=== PATIENT | male | born 2000 | race Caucasian/White ===

== ENCOUNTER 2020-07-26 09:03 | Emergency (ER) | payer OTHER, SELFPAY ==
--- NOTE | ~2020-07-26 | XR_ITS ---
XR hand RT min 3V DATE: 07/26/2020 09:55 INDICATION: Fell into a linear. Right hand injury. TECHNIQUE: 3 portable views. The hand is bandaged and there is suboptimal non-standard positioning as a result. COMPARISON: None FINDINGS: No radiopaque soft tissue foreign body or subcutaneous emphysema is evident. No fracture or dislocation is detected. IMPRESSION: No definite abnormality Reviewed, dictated and finalized at location A. IMPRESSION: No definite abnormality
[2020-07-26 09:16] VITALS: BP 147/91; PULSE 67; RESP 20; TEMP 36.7; O2SAT 96
--- NOTE | 2020-07-26 10:45 | ED.WOUNDLAC ---
HPI - Wound/Laceration General Chief Complaint: Wound/Laceration Stated Complaint: cut R hand Time Seen by Provider: 07/26/20 09:17 Source: patient and family Mode of arrival: ambulatory Limitations: no limitations History of Present Illness HPI narrative: 20-year-old with no major medical problems was brought in by family with complaints of laceration to his right hand sustained prior to coming to the ER. Patient states that he accidentally tripped and fell on marrow sustained a laceration. He denies any other injuries. Onset (ago): minute(s) (30) Extremity Location: Right: hand Place: home Patient tetanus UTD: Yes Context: accidental Associated symptoms: none and unable to move injured part Related Data Allergies Allergy/AdvReac Type Severity Reaction Status Date / Time No Known Allergies Allergy Verified 07/26/20 09:04 Review of Systems Review of Systems: All systems reviewed & are unremarkable except as noted in HPI and below Constitutional: Constitutional: Reports no additional constitutional complaints Eyes: Eyes: Reports no additional eye complaints ENT: Reports system reviewed and no additional complaints, except as documented Cardiovascular: Cardiovascular: Reports no additional cardiovascular complaints Respiratory: Respiratory: Reports no additional respiratory complaints Musculoskeletal: Musculoskeletal: Reports as per HPI Integumentary/Breasts: Skin/Breast: Reports as per HPI Neurologic: Reports system reviewed and no additional complaints, except as documented PMFSH Social History Social History Gender identity (if verbalized by the patient): Male Exam Narrative: Exam Narrative: GENERAL: Well-appearing, well-nourished, and in no acute distress. HEAD: Normocephalic, atraumatic. EYES: PERRLA and EOMI. ENT: Nares clear, no rhinorrhea or epistaxis. Mucous membranes moist. NECK: Supple. CHEST: Clear to auscultation. No respiratory distress. HEART: Regular rate and rhythm. No murmur heard. Normal peripheral pulses. EXTREMITIES: Right hand Has laceration on the dorsum at the 3 metacarpophalangeal joint , unable to extend the finger , decrease sensation distally SKIN: Warm, dry, no rash. NEURO: No focal deficits. Alert and oriented x3. PSYCH: Normal mood and affect. Course Course Emergency Course: Inform patient about x-ray findings. I closed the wound with 4-0 nylon. However he does have possible tendon and back nerve injury I discussed with Dr. Alvarado at [facility] recommended Augmentin and patient can be followed up in their office tomorrow. Patient does feel comfortable going home Vital Signs Vital signs: Vital Signs Temperature 36.7 C 07/26/20 09:16 Pulse Rate 67 07/26/20 09:16 Respiratory Rate 20 07/26/20 09:16 Blood Pressure 147/91 H 07/26/20 09:16 Pulse Oximetry 96 07/26/20 09:16 Temperature 36.7 C 07/26/20 09:16 Pulse Rate 67 07/26/20 09:16 Respiratory Rate 20 07/26/20 09:16 Blood Pressure 147/91 H 07/26/20 09:16 Pulse Oximetry 96 07/26/20 09:16 Procedures Laceration Laceration 1: Date: 07/26/20 Site: hand Side (If applicable): right Description: flap Depth: simple, single layer Local Anesthetic: lidocaine 2% and with epi Amount of anesthesia used (mL): 10 Pre-repair: wound explored and irrigated ====== Skin Level ====== Skin layer closed with: nylon Size (cm): 4-0 Number of sutures: 8 Technique: simple, interrupted ====== Subcutaneous Layer ====== ====== Muscle Layer ====== ====== Tendon Layer ====== MDM - Wound/Laceration Imaging Data Radiologist's impression: ITS Impressions Hand X-Ray 07/26/20 10:03 IMPRESSION: No definite abnormality Discharge Plan Discharge Clinical Impression: Laceration, Digital nerve injury, Injury of tendon of fi
== END 2020-07-26 11:32 | disposition home or self-care (01) ==
PROVIDERS: Emergency Provider Family Medicine; PCP Emergency Medicine
DX: S66.122A Laceration of flexor muscle, fascia and tendon of right middle finger at wrist and hand level, initial encounter (principal); S64.492A Injury of digital nerve of right middle finger, initial encounter; W01.110A Fall on same level from slipping, tripping and stumbling with subsequent striking against sharp glass, initial encounter
CPT/HCPCS: 12002; 73130; 99283

== ENCOUNTER 2020-12-03 16:09 | Emergency (ER) | payer OTHER, SELFPAY ==
--- NOTE | ~2020-12-03 | XR_ITS ---
EXAMINATION: XR hand LT min 3V DATE: 12/03/2020 16:29 INDICATION: Left hand pain. TECHNIQUE: 3 views of left hand were obtained. COMPARISON: None. FINDINGS: Bone alignment is normal. No fracture. Joint spaces are well maintained. There is soft tiss ue swelling of the hand. IMPRESSION: 1. No fracture. Reviewed, dictated and finalized at location A. IMPRESSION: 1. No fracture.
[2020-12-03 16:19] VITALS: BP 147/88; PULSE 65; RESP 18; TEMP 36.4; O2SAT 100
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
== END 2020-12-03 17:24 | disposition home or self-care (01) ==
PROVIDERS: Emergency Provider Nurse Practitioner; PCP Emergency Medicine
DX: S60.222A Contusion of left hand, initial encounter (principal); V86.05XA Driver of 3- or 4- wheeled all-terrain vehicle (ATV) injured in traffic accident, initial encounter
CPT/HCPCS: 73130; 99213; G0463

== ENCOUNTER 2021-03-15 00:19 | Day surgery (SDC) | payer OTHER, SELFPAY ==
--- NOTE | 2021-03-08 13:01 | PC.NURSE ---
Report to the Outpatient Waiting Room, entrance under the green pavilion located off [facility], at time _1000___ on date _03/15/21 . OR Time: ___1200 . - You and your visitor will be asked a series of questions to screen for COVID 19 for your protection. - A mask is required within the hospital. - Only one visitor is allowed at this time. Patient visitors will be guided where to wait when not with patient. Preoperative COVID Testing Requirements: No COVID Test needed if: (proof is required; if not received patient will have Rapid Test prior to entry) - Patient has received COVID Vaccine at least 14 days prior to procedure date or - Patient has positive COVID test result within last 90 days of surgery date. COVID Test needed if above criteria is not met If not COVID vaccinated a COVID test must be conducted within 72 hours of surgery and patient is asked to isolate self from time of testing until procedure. You will go to the [facility] for your COVID testing. The [facility] Testing site is located at the corner of [address] [facility]. You will only be called if COVID results are positive and your surgeon may reschedule your elective surgery date. Patients may have clear liquids (water, carbonated beverages, clear teas, apple juice) until 3 hours prior to surgery with a maximum of 20 ounces. - No food from midnight until time of surgery - Infants may have breast milk until 4 hours before surgery, infant formula 6 hours prior to surgery. - Children will be allowed to drink immediately following surgery. If applicable, please bring a bottle or sippy cup to assist with drinking. Juice, water, soda, and popsicles are readily available. For infants on formula, please bring formula the day of surgery. Pacifiers are allowed. Take the following medications with a SIP of water the morning of surgery: NONE Medications to discontinue per physician NONE Date to take last dose Please no make-up, nail canadian, hairspray, perfume, deodorant, or body powder the day of surgery. No jewelry (including any body piercings) or valuables the day of surgery, leave them at home. Please take a shower or bath the night before, or the morning of, surgery with an antibacterial soap. Wear comfortable, loose fitting clothing. Children are encouraged to wear pajamas. - Jewelry must be removed prior to entering the operating room. Rings and piercings that are not removed may be cut off. - The hospital will not accept responsibility for valuables. - Please leave all valuables, including medications, at home the day of surgery. If you are going home after surgery, a licensed stage driver must drive you home. - NO public transportation without another adult. - We recommend that an adult stay with you for 24 hours following discharge. - We also recommend that you do not drive, make important decision, drink alcoholic beverages, or take any drugs that were not prescribed by your health care provider for at least 24 hours after your discharge time. For Pediatric surgeries, we recommend two adults accompany the child home (only one inside the building at this time). Follow any additional instructions given to you from your surgeon. Telephone instructions given to __PATIENT and asked if any additional questions and then verbalized understanding. Patient advised to call surgeon office or pre surgery nurse liaison [phone] if any additional questions.
[2021-03-08 13:14] VITALS: BMI 32.8
[2021-03-15] VITALS (8 sets, daily range): BP systolic 113–142; BP diastolic 83–101; PULSE 58–85; RESP 14–20; TEMP 36.1–36.5; O2SAT 99–100
[2021-03-15] MEDS: LACTATED RINGERS 1,000 ML 30 ML IV CONT ×2 (10:40→13:13)
--- NOTE | 2021-03-15 11:13 | WPDANESEPPF ---
Anes - Initial Pre Proc Eval Procedure: Operation Date: 03/15/21 12:00 Proposed Procedures p Excision of Complicated Pilonidal Cyst - Kenji Bowers DO Date/Time: 03/15/21 11:13 Surgeon: Kenji Bowers DO Pre Op Diagnosis: pilonidal cyst with abscess Patient Data Age: 20 Gender: M Height: 1.83 m Weight: 118 kg Last Vital Signs Temp 36.5 C 03/15/21 10:43 Pulse 61 03/15/21 10:43 BP 128/93 H 03/15/21 10:43 Pulse Ox 100 03/15/21 10:43 Allergies Allergy/AdvReac Type Severity Reaction Status Date / Time No Known Allergies Allergy Verified 03/15/21 10:25 Home Medications Medication Instructions Recorded Confirmed Type metronidazole 1 % topical cream 1 applic TOPICAL DAILY PRN 12/30/20 03/08/21 History Patient hx anesthesia problems: none Family hx anesthesia problems: none Results Review: All pre-operative results and documents have been reviewed as part of the pre-operative evaluation. 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 Informed Consent: The patient's anesthetic plan and its attendant risks and benefits were discussed with the patient/family/POA. Questions were solicited and answers provided to the satisfaction of the patient/family/POA.
--- NOTE | 2021-03-15 11:33 | PM.IMHP ---
H&P: HPI History of Present Illness Date/Time: 03/15/21 11:33 Chief Complaint: Pilonidal cyst Narrative: 20 yo man presents for excision of pilonidal cyst. He reports no changes since last seen in office. Review of Systems Review of Systems: All systems reviewed & are unremarkable except as noted in HPI and below Constitutional: Constitutional: Denies chills, Denies fever(s), Denies headache(s) and Denies weight loss Eyes: Eyes: Denies change in vision ENT: Denies dizziness, Denies headache(s), Denies neck mass and Denies throat swelling Cardiovascular: Cardiovascular: Denies chest pain, Denies lightheadedness and Denies dyspnea Respiratory: Respiratory: Denies cough, Denies dyspnea and Denies wheezing Gastrointestinal: Gastrointestinal: Denies abdominal pain, Denies change in bowel habits, Denies nausea and Denies vomiting Genitourinary: Genitourinary: Denies hematuria and Denies dysuria Musculoskeletal: Musculoskeletal: Reports as per HPI Integumentary/Breasts: Skin/Breast: Reports as per HPI Neurologic: Denies dizziness and Denies headache(s) Allergic/Immunologic: Allergic/Immunologic: Denies throat swelling and Denies wheezing PMFSH Surgical History Surgical History H/O hand surgery History of incision and drainage pilonidal cyst Family History Family History Father Cyst Unknown Diabetes mellitus Social History Social History Smoking status: Never smoker Tobacco type: e-cigarettes/vaping Alcohol intake: current Drinks per week: 4 Substance use: current Substance use type: marijuana Other substance usage details: 1-2 TIMES PER DAY Last use: TODAY Living arrangements: alone 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 Gender identity (if verbalized by the patient): Male Spiritual care concerns: No Meds Home Medications and Allergies Home Medications Medication Instructions Recorded Confirmed Type metronidazole 1 % topical cream 1 applic TOPICAL DAILY PRN 12/30/20 03/08/21 History Allergies Allergy/AdvReac Type Severity Reaction Status Date / Time No Known Allergies Allergy Verified 03/15/21 10:25 Vital Signs Vital Signs - 24 hr 03/15/21 10:43 Temperature 36.5 C Pulse Rate 61 Blood Pressure 128/93 H Pulse Oximetry 100 Exam Const: General: no acute distress and alert Orientation/consciousness: patient oriented x3 HENMT: Head: normocephalic and atraumatic Ears: hearing grossly normal bilaterally General nose exam: Normal nares present Mouth: Yes Normal oral and palatal mucosa present Eyes: Periorbital: periorbital findings normal Sclera: sclerae normal EOM: EOMs intact bilaterally Neck: Neck: normal visual inspection, no lymphadenopathy and trachea midline Chest: Chest palpation & inspection: normal inspection of the chest Resp: Effort & Inspection: normal respiratory effort Auscultation: clear to auscultation bilaterally Cardio: Jugular venous distension: no JVD Rate: regular rate Rhythm: regular rhythm Heart sounds: S1 normal heart sound present and S2 normal heart sound present Peripheral pulses: Peripheral pulses 2+ throughout GI: Inspection: normal to inspection GI Palp: Yes Soft to palpation, No Tenderness to palpation present (GI), No Guarding due to palpation present (GI) and No Rebound tenderness present Percussion: Yes normal to percussion Auscultation: normal bowel sounds : General: Yes no CVA tenderness Back/Spine/Pelvis: Back: no CVA tenderness Skin: Other: Pilonidal cyst Neuro: General: patient oriented x3, no focal motor deficits and CN's II-XI intact bilaterally Cognition (Neuro): normal cognition Speech: normal speech Motor exam (neuro): 5/5 motor strength present throughout Extrem: General: capillary refill normal and n
--- NOTE | 2021-03-15 11:35 | WPDHPUPDATE1 ---
History and Physical Update Update Date/Time: 03/15/21 11:35 History and Physical has been reviewed, including an updated exam of the patient. There are NO changes in the patient's condition. Risks, benefits, and alternatives have been discussed and questions answered. Patient agrees to proceed with procedure.
[2021-03-15] MEDS: ceFAZolin 2 GM/D5W 50 ML 2 GM/50 ML BAG IVPB (11:53)
[2021-03-15] MEDS: BUPIVACAINE HCL 0.5% PF 30 ML VIAL INFILTRATE (12:23)
--- NOTE | 2021-03-15 13:00 | P.OP_ITS ---
Procedure Note - Detailed Date of Procedure 03/15/21 Pre-op Diagnosis pilonidal cyst Post-op Diagnosis same Procedure Performed Excision of complicated pilonidal cyst Surgeon Kenji Bowers, DO Anesthesia general and local ( 0.5% bupivacaine) Indications This is a 20-year-old man who presents with a complicated pilonidal cyst. He has had multiple flare ups infection in this region over the past 5 years. He previously was placed on antibiotics and had drainage of the abscess. It has healed up and he reports no further drainage recently in this area. Discussions were made with the patient about treatment options and decision was made to proceed with excision of complicated pilonidal cyst. Findings Excision of complicated pilonidal cyst was performed. The patient was found to have 3 small sinus tracts along the midline intergluteal cleft. There was evidence of the previous abscess just to the left of midline in the upper gluteal cleft. After probing the sinus tracts with lacrimal probes, an 8 cm elliptical incision was then made to encompass the entire area. The cyst was completely excised and sent to the lab for pathology. No other abnormalities were noted. There did not appear to be any signs of active infection or purulence drainage. Description of Procedure Procedure as well as risks, benefits, and alternatives were discussed with the patient. Written consent was obtained and placed in chart prior to procedure. Patient was brought back to surgical suite. He was placed supine on operating table. Time-out was done to confirm patient and procedure. He was then intubated by the Anesthesia Department. He was then repositioned to prone hayley- knife position on the operating table. His sacral region was prepped and draped in sterile fashion using Betadine prep. 0.5% bupivacaine with epinephrine was infiltrated locally around the pilonidal cyst. Lacrimal probes were used to identify the sinus tracts and probed for the directions that they were tracking. An 8 cm elliptical incision was then made using a 10 blade scalpel to encompass the entire area. Electrocautery was used for hemostasis and for dissection down deep to the cyst cavity. Careful dissection was made around the entire cyst to excise it completely intact. The cyst was completely removed and sent to the lab for pathology. The wound bed was then inspected. Hemostasis was achieved with electrocautery. A 0.5% bupivacaine with epinephrine was infiltrated deep in the cavity. The wound bed was then irrigated with sterile saline. No other abnormalities were noted. The deep tissue was then reapproximated using 1 Vicryl simple interrupted sutures. The skin edges were then reapproximated using 1 Prolene and 2-0 Prolene vertical mattress interrupted sutures placed approximately 1 cm apart. Fluff gauze, ABD pad, and Medipore tape were then applied. The patient was then awakened from anesthesia, extubated, and transferred to recovery. Estimated Blood Loss 10 Packing No Pathology yes ( pilonidal cyst) Complications No immediate complications Condition stable Disposition same day
== END 2021-03-15 14:28 | disposition home or self-care (01) ==
PROVIDERS: PCP Emergency Medicine; Visit Provider Surgery
PROC: (CPT 11772; principal; 2021-03-15 12:00)
DX: L05.91 Pilonidal cyst without abscess (principal); F17.290 Nicotine dependence, other tobacco product, uncomplicated; F12.90 Cannabis use, unspecified, uncomplicated; E66.9 Obesity, unspecified; Z68.35 Body mass index [BMI] 35.0-35.9, adult
CPT/HCPCS: 11772; 88305; A9270; J0690; J2250; J2270; J2405; J2704; J2710; J7120